=== PATIENT | female | born 1985 ===

== ENCOUNTER 2018-02-05 19:57 | Emergency (ER) | payer OTHER ==
[2018-02-05 21:12] VITALS: RESP 16; O2SAT 100
[2018-02-05 21:28] VITALS: BP 125/76; PULSE 96; TEMP 98.3
--- NOTE | 2018-02-05 23:21 | ED PDOC ---
HPI: Female Pain Chief Complaint (Provider): vaginal bleeding History Per: Patient History/Exam Limitations: no limitations Onset/Duration Of Symptoms: Days Current Symptoms Are (Timing): Still Present Severity: Mild Pain Scale Rating Of: 3 Quality Of Discomfort: Cramping Associated Symptoms: denies: Fever, Chills, Nausea, Diarrhea, Loss Of Appetite, Back Pain, Urinary Symptoms Alleviating Factors: None Additional Complaint(s): 32 yr old presents to ED with complaint of vaginal bleeding x 17 days which started after she took Plan B. LMP 01/19/18, has continued up until today, initially had clots, now spotting. Denies signifcant PMHx. Denies nausea, vomiting, fevers, chills, breast tenderness, dysuria or hematuria, vaginal bleeding or pruritus. Reports 1 miscarriage in 2010 followed by a D&C. Denies hx STD or abnormal pap. Menstrual cycles have been regular in the past. Patient denies any current medication or allergy to medications. She is currently sexually active and does not use barrier or medical contraception. Does not have a PMD or Obgyn. Denies weakness or dizziness. <Telma Reynolds - Last Filed: 02/05/18 23:46> <Kimberly Pearce - Last Filed: 02/06/18 16:33> Time Seen by Provider: 02/05/18 22:22 Chief Complaint (Nursing): Female Genitourinary Supervising Attending Note - Supervising Attending Note The Documented history was done by the: Physician Wringer Operator, Attending Physician The documented physical exam was done by the: Physician Wringer Operator, Attending Physician - Attestation: I have personally seen and examined this patient.: Yes I have fully participated in the care of the patient.: Yes I have reviewed all pertinent clinical information, including history, physical exam and plan: Yes - Notes: Notes:: Prolonged vaginal bleeding, with hgb 7.6 c/w microcytic anemia DW pt findings. Pt has had h/o iron deficiency anemia and had been on a course of iron supplementation in the past. She denies chest pain or shortness of breath or dyspnea on exertion or palpitations. She does reports malaise and fatigue. Examination negative for orthostatics. 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 Clinical presentation does not warrant hospitalization or transfusion at this time. Pt to be given low dose OCPs and instructed to take two tablets a day until bleeding stops, then can take once a day. Also will be given rx of iron. Urgent follow up arranged through FP resident. JOSEPH pt plan of care and bleeding precautions given. Questions/concerns answered/addressed. Pt eager to go home. <Kimberly Pearce - Last Filed: 02/06/18 16:33> Past Medical History Vital Signs: Last Vital Signs Temp 98.3 F 02/05/18 21:07 Pulse 96 H 02/05/18 21:07 Resp 16 02/05/18 21:07 BP 125/76 02/05/18 21:07 Pulse Ox 100 02/05/18 21:07 - Medical History PMH: No Chronic Diseases - Surgical History Surgical History: No Surg Hx - Family History Family History: States: No Known Family Hx - Living Arrangements Living Arrangements: With Family - Social History Current smoker - smoking cessation education provided: No Ex-Smoker (has not smoked in the last 12 months): No Alcohol: None Drugs: Denies <Telma Reynolds - Last Filed: 02/05/18 23:46> Vital Signs: Last Vital Signs Temp 98.3 F 02/05/18 21:07 Pulse 96 H 02/05/18 21:07 Resp 02/05/18 21:07 BP 125/76 02/05/18 21:07 Pulse Ox 100 02/05/18 23:46 <Kimberly Pearce - Last Filed: 02/06/18 16:33> - Home Medications Home Medications: Ambulatory Orders Medication Instructions Recorded Docusate [Colace] 100 mg PO BID PRN #60 cap 02/06/18 Ferrous Sulfate [Feosol] 325 mg PO BID #60 tab 02/06/18 Norethindrone AC-Eth Estradiol 2 each PO DAILY #21 tablet 02/06/18 [Loestrin 21 1-20 Tablet] - Allergies Allergies/Adverse Reactions: Allergies Allergy/AdvReac Type Severity Reaction Status Date / Time No Known Allergies Allergy Verified 02/05/18 21:12 Review of Systems Constitutional: Negative for: Fever, Chills, Sweats, Malaise ENT: Negative for: Ear Pain, Throat Pain Cardiovascular: Negative for: Chest Pain, Palpitations, Light Headedness Respiratory: Negative for: Cough, Shortness of Breath, Hemoptysis Gastrointestinal: Negative for: Nausea, Vomiting, Abdominal Pain Genitourinary Female: Positive for: Vaginal Bleeding. Negative for: Dysuria, Frequency Musculoskeletal: Negative for: Neck Pain, Shoulder Pain, Arm Pain Skin: Negative for: Rash, Lesions Neurological: Negative for: Weakness, Confusion, Dizziness <Telma Reynolds - Last Filed: 02/05/18 23:46> Physical Exam - Physical Exam Appears: Positive for: No Acute Distress Head Exam: Positive for: ATRAUMATIC, NORMOCEPHALIC Skin: Positive for: Normal Color, Warm, Dry Eye Exam: Positive for: EOMI, PERRL ENT: Negative for: Pharyngeal Erythema, Tonsillar Exudate Neck: Positive for: Painless ROM, Supple Cardiovascular/Chest: Positive for: Regular Rate, Rhythm. Negative for: Gallop , Murmur Respiratory: Positive for: Normal Breath Sounds. Negative for: Rales, Rhonchi Pulses-Carotid (L): 2+ Pulses-Carotid (R): 2+ Pulses-Radial (L): 2+ Pulses-Radial (R): 2+ Gastrointestinal/Abdominal: Positive for: Bowel Sounds, Soft. Negative for: Tenderness Pelvic Exam: Positive for: Active Bleeding (minimal), Discharge (yellowish/ mucous, nonmalodorous), Tender W/Cervical Motion Back: Negative for: L CVA Tenderness, R CVA Tenderness Extremity: Positive for: Normal ROM. 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 Negative for: Nitrate, Ketones, Glucose - ECG O2 Sat by Pulse Oximetry: 100 - Progress ED Course And Treament: -Udip, Upreg, CBC with diff, PT/PTT, type and screen, Gc/Ch cultures -23:45 patient remains stable <Telma Reynolds - Last Filed: 02/05/18 23:46> - Laboratory Results Result Diagrams: 02/05/18 23:49 02/05/18 23:49 <Kimberly Pearce - Last Filed: 02/06/18 16:33> Disposition - Disposition Disposition Time: 23:46 <Telma Reynolds - Last Filed: 02/05/18 23:46> - Disposition Disposition: Routine/Home <Kimberly Pearce - Last Filed: 02/06/18 16:33> - Clinical Impression Clinical Impression: Abnormal vaginal bleeding, Anemia - Disposition Referrals: [facility] [Outside] - 02/08/18 ([facility] Condition: STABLE Additional Instructions: [facility]A [facility]. Prescriptions: Docusate [Colace] 100 mg PO BID PRN #60 cap PRN Reason: Constipation Ferrous Sulfate [Feosol] 325 mg PO BID #60 tab Norethindrone AC-Eth Estradiol [Loestrin 21 1-20 Tablet] 2 each PO DAILY #21 tablet Instructions: Anemia Caused by Low Iron, Dysfunctional Uterine Bleeding (ED)
[2018-02-05 23:53] LABS: BASO % 0.7 % (0.0-2.0); EOS # 0.1 K/uL (0.0-0.7); EOS % 1.6 % (0.0-4.0); HEMOGLOBIN 7.6 g/dL (12.0-16.0); LYMPH # 0.9 K/uL (1.0-4.3); LYMPH % 15.4 % (20.0-40.0); MEAN CELL VOLUME 64.9 fl (81.0-99.0); MEAN CORPUSCULAR HEMOGLOBIN 19.2 pg (27.0-31.0); MEAN CORPUSCULAR HGB CONC 29.6 g/dL (33.0-37.0); MEAN PLATELET VOLUME 6.8 fl (7.2-11.7); MONO # 0.7 K/uL (0.0-0.8); MONO % 11.3 % (0.0-10.0); NEUT # 4.3 K/uL (1.8-7.0); NRBC % 0.1 % (0.0-0.0); RBC 3.94 Mil/uL (3.80-5.20); WHITE BLOOD COUNT 6.1 K/uL (4.8-10.8)
[2018-02-06 00:05] LABS: BLOOD UREA NITROGEN 11 mg/dl (7-17); GFR AFRICAN-AMERICAN > 60; GFR NON-AFRICAN AMERICAN > 60
[2018-02-06 00:12] LABS: PARTIAL THROMBOPLASTIN TIME 28.6 Seconds (25.6-37.1); PROTHROMBIN TIME 10.9 Seconds (9.8-13.1)
== END 2018-02-06 00:40 | disposition home or self-care (01) ==
LOC: H.ER 19:57
DX: N93.9 Abnormal uterine and vaginal bleeding, unspecified (principal); D64.9 Anemia, unspecified